=== PATIENT | male | born 1955 | race Caucasian/White ===

== ENCOUNTER 2018-01-26 16:40 | Outpatient (CLI) | payer BC ==
--- NOTE | 2018-01-26 17:37 | RAD ---
TWO VIEWS CHEST: Comparison: 04-05-03 History: Right chest pain, rib contusion. FINDINGS: Two views of the chest show normal sized cardiomediastinal silhouette. There is no evidence of consol idation, mass, or pleural effusion. The bones are unremarkable. IMPRESSION: No evidence of acute cardiopulmonary disease. POS: [facility]
--- NOTE | 2018-01-26 17:40 | RAD ---
RADIOGRAPH RIGHT RIBS TWO VIEWS: Date: 01-26-18 History: 62-year-old male status post right rib pain from contusion, since six days ago. FINDINGS: There is diffuse osteopenia. The ribs that project inferior to the diaphragm are not visible. No smiley sly displaced fracture is identified involving the visualized portions of the ribs. IMPRESSION: No fracture identified. POS: [facility]
== END 2018-01-26 16:41 | disposition home or self-care (01) ==
LOC: MADRAD 16:40
PROVIDERS: ATTEND Family Medicine
DX: S20.211A Contusion of right front wall of thorax, initial encounter (principal)
CPT/HCPCS: 71046

== ENCOUNTER 2019-07-07 18:29 | Emergency (ER) | payer BC ==
[2019-07-07] MEDS ORDERED: Cyclobenzaprine 10 MG TAB ONE (19:09)
[2019-07-07] MEDS ORDERED: Ibuprofen 800 MG TAB ONE (19:09)
== END 2019-07-07 19:25 | disposition home or self-care (01) ==
LOC: MADERS 18:29
DX: S16.1XXA Strain of muscle, fascia and tendon at neck level, initial encounter (principal); S40.022A Contusion of left upper arm, initial encounter; S39.012A Strain of muscle, fascia and tendon of lower back, initial encounter; S29.012A Strain of muscle and tendon of back wall of thorax, initial encounter; F17.210 Nicotine dependence, cigarettes, uncomplicated; V89.2XXA Person injured in unspecified motor-vehicle accident, traffic, initial encounter
CPT/HCPCS: 99283

== ENCOUNTER 2023-11-26 15:42 | Outpatient (CLI) | payer BC | END 2023-11-26 15:43 | disposition home or self-care (01) | LOC: MADRAD 15:42 | PROVIDERS: ATTEND Internal Medicine | DX: R07.81 Pleurodynia (principal) | CPT/HCPCS: 71046 ==